=== PATIENT | male | born 1965 | race American Indian/Alaskan Native ===

== ENCOUNTER 2017-02-13 08:47 | Emergency (ER) | payer MEDICARE ==
[2017-02-13 09:23] VITALS: BP 131/72
[2017-02-13] MEDS ORDERED: NORCO 7.5/325 PO ONE (10:14)
[2017-02-13] MEDS ORDERED: NORCO 7.5/325 ONE (10:21)
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
--- NOTE | 2017-02-13 16:27 | XRay Report ---
XRAY RIGHT HAND THREE VIEWS: 02/13/17 08:47:00 CLINICAL: Pain and swelling. FINDINGS: An oblique minimally displaced comminuted fracture of the proximal third metacarpal. No callus.No other fracture. No dislocation. 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 Normal soft tissues. No soft tissue air or foreign body. IMPRESSION: Acute traumatic closed minimally displaced comminuted fracture of the proximal third metacarpal.
== END 2017-02-13 12:14 | disposition home or self-care (01) ==
LOC: ED 08:47
DX: S62.642A Nondisplaced fracture of proximal phalanx of right middle finger, initial encounter for closed fracture (principal); F17.200 Nicotine dependence, unspecified, uncomplicated; W22.8XXA Striking against or struck by other objects, initial encounter; Y93.89 Activity, other specified; Y99.8 Other external cause status; Y92.89 Other specified places as the place of occurrence of the external cause